=== PATIENT | female | born 1995 | race Caucasian/White ===

== ENCOUNTER 2020-09-15 14:49 | Emergency (ER) | payer MEDICAID ==
[~2020-09-15] VITALS: Ht 162.6 cm; Wt 64.5 kg
[2020-09-15 14:58] VITALS: TEMP 97.4
[2020-09-15 15:29] LABS: COLLECTION METHOD CLEAN CATCH
[2020-09-15 15:31] LABS: BASO % 0.3 % (0.0-2.0); EOS % 0.5 % (0-4.0); GRAN # 5.6 (1.4-6.5); GRAN % 76.4 % (42.2-75.2); HEMOGLOBIN 11.1 g/dl (12.5-16.0); LYMPH # 1.2 (1.2-3.4); LYMPH % 16.9 % (20.0-51.0); MEAN CELL VOLUME 90 fl (80.0-100.0); MEAN CORPUSCULAR HEMOGLOBIN 29 pg (27.0-31.0); MEAN CORPUSCULAR HGB CONC 33 g/dl (33.0-37.0); MEAN PLATELET VOLUME 9.2 fl (7.4-10.4); MONO # 0.4 (0.1-0.6); MONO % 5.4 % (1.7-9.3); PLATELET COUNT 231 K/mm3 (130-400); RED BLOOD COUNT 3.81 M/mm3 (4.10-5.30); REDCELL DISTRIBUTION WIDTH-CV 13.4 % (11.5-14.5)
[2020-09-15 15:33] LABS: HEMATOCRIT 34.2 % (37.0-47.0)
[2020-09-15 15:35] LABS: MUCOUS Present /lpf; PH 8 (5-8); URINE APPEARANCE Hazy; URINE BACTERIA Rare /hpf; URINE BILIRUBIN Negative (NEGATIVE); URINE BLOOD Negative (NEGATIVE); URINE COLOR Yellow; URINE GLUCOSE Negative (NEGATIVE); URINE KETONE Negative (NEGATIVE); URINE LEUKOCYTE ESTERASE Trace (NEGATIVE); URINE NITRATE Negative (NEGATIVE); URINE PROTEIN(semi-quant) Negative (NEGATIVE); URINE RBC 0-2 /hpf; URINE UROBILINOGEN Negative (NEGATIVE)
[2020-09-15 15:47] LABS: ALANINE AMINOTRANSFERASE 13 U/L (4-34); ALBUMIN 3.9 gm/dL (3.5-5.0); ALKALINE PHOSPHATASE 52 U/L (50-136); ANION GAP 10 mmol/L (7-16); AST,SGOT 20 U/L (15-37); BILIRUBIN,TOTAL 0.2 mg/dL (0.0-1.0); BLOOD UREA NITROGEN 7 mg/dL (7-17); CALCIUM 9.6 mg/dL (8.4-10.2); CARBON DIOXIDE 21 mmol/L (22-30); CHLORIDE 105 mmol/L (98-107); CREATININE, serum 0.48 (0.52-1.25); GLUCOSE 85 mg/dL (74-106); POTASSIUM 3.7 mmol/L (3.4-5.0); SODIUM 136 mmol/L (137-145); TOTAL PROTEIN 7.1 gm/dL (6.4-8.2)
[2020-09-15 16:09] LABS: C-REACTIVE PROTEIN < 0.5 mg/dL (0.0-0.9); LIPASE 50 U/L (23-300)
[2020-09-15] MEDS ORDERED: CEFTIN500 MG PO (16:59)
[2020-09-15 17:15] VITALS: BP 108/72; PULSE 72
== END 2020-09-15 17:19 | disposition home or self-care (01) ==
LOC: COL.ER 14:49
PROVIDERS: Physician Assistant
DX: O23.42 Unspecified infection of urinary tract in pregnancy, second trimester (principal); Z3A.19 19 weeks gestation of pregnancy
CPT/HCPCS: J0696; J7030

== ENCOUNTER 2021-01-05 12:33 | Outpatient (CLI) | payer MEDICAID ==
[~2021-01-05] VITALS: Ht 162.6 cm; Wt 73.5 kg
--- NOTE | 2021-01-05 12:20 | NUR ---
Patient ambulates to LR1, changes into gown, FHR/TOCO monitors applied. Patient states "I have been cramping, having alot of pelvic pressure, back pain, everytime he moves his head I pee myself a little". Denies any leaking of fluid/vaginal bleeding/decreased movement. Plan of care discussed. SVE: 0-1/thick/-3 and amniotest negative.
--- NOTE | 2021-01-05 12:30 | NUR ---
Dr. Raya at nurses station and updated and order for a UA at this time and to call her with results and to have patient PO hydrate. Patient taken water and plan of care discussed.
[~2021-01-05 12:33] MED LIST: CEFTIN500 MG PO
[2021-01-05 12:42] LABS: COLLECTION METHOD CLEAN CATCH
[2021-01-05 12:45] VITALS: BP 106/68; PULSE 116; TEMP 99.2
[2021-01-05 12:50] LABS: MUCOUS Present /lpf; PH 7 (5-8); URINE APPEARANCE Hazy; URINE BACTERIA Rare /hpf; URINE BILIRUBIN Negative (NEGATIVE); URINE BLOOD Negative (NEGATIVE); URINE COLOR Yellow; URINE GLUCOSE Negative (NEGATIVE); URINE KETONE Negative (NEGATIVE); URINE LEUKOCYTE ESTERASE Negative (NEGATIVE); URINE NITRATE Negative (NEGATIVE); URINE PROTEIN(semi-quant) Negative (NEGATIVE); URINE RBC 0-2 /hpf; URINE UROBILINOGEN Negative (NEGATIVE); URINE WBC 0-2 /hpf
[2021-01-05 13:00] VITALS: BP 99/61; PULSE 100
[2021-01-05 13:25] VITALS: BP 93/57; PULSE 96
--- NOTE | 2021-01-05 13:25 | NUR ---
Patient given discharge instructions and verbalizes understanding. Patient off monitors. Questions answered. 1335: Patient off unit at this time.
== END 2021-01-05 13:35 | disposition home or self-care (01) ==
LOC: LDRO 12:33
PROVIDERS: Obstetrics & Gynecology
DX: O26.899 Other specified pregnancy related conditions, unspecified trimester (principal); Z3A.41 41 weeks gestation of pregnancy

== ENCOUNTER 2021-01-31 10:23 | Outpatient (CLI) | payer MEDICAID ==
[~2021-01-31] VITALS: Ht 162.6 cm; Wt 71.4 kg
[2021-01-31 10:34] VITALS: BP 113/71; PULSE 120; TEMP 99.2
--- NOTE | 2021-01-31 10:46 | NUR ---
PT. AMBULATORY TO UNIT FOR C/O INTERMITTENT LOWER BACK PAIN. PT. ESCORTED TO LR5 AND CLEAN GOWN ON. EFM/TOCO APPLIED. VITAL SIGNS OBTAINED, SVE PER FAUSTINO UNGER /3. ASSESSMENTS COMPLETED AND QUESTIONS INVITED. PT. STATES NO QUESTIONS/CONCERNS AT THIS TIME. WILL CONTINUE TO MONITOR PT
[2021-01-31 11:00] VITALS: BP 109/56; PULSE 116
[2021-01-31 11:03] VITALS: BP 108/62; PULSE 100
--- NOTE | 2021-01-31 11:18 | NUR ---
PT. CLAUDIA EVERY 1.5-2, BUT MILD UPON PALPATION. PT. STATES SHE IS HAVING BACK PAIN, BUT THAT'S THE ONLY THING SHE FEELS. RN GAVE CUP OF WATER AND ENCOURAGED FLUID INTAKE. EXPLAINED DEHYDRATION W/ .
[2021-01-31 11:30] VITALS: BP 102/58; PULSE 102
--- NOTE | 2021-01-31 11:41 | NUR ---
1130: DR. RAMOS AT DISCUSSING POC. SHE WANTS PT TO WALK AROUND/USE BIRTHING BALL, ETC FOR THE NEXT 40MIN TO TRY TO SEE IF SHE'S IN LABOR SINCE PT. WANTS TO TOLAC. THEN MONITOR BABY FOR 20MIN AND RECHECK CERVIX. CALL HER WITH UPDATED SVE
[2021-01-31 12:32] VITALS: TEMP 98.7
--- NOTE | 2021-01-31 12:58 | NUR ---
1252: PT. DISCHARGED HOME PER DR. RAMOS. RN WENT OVER RETURN PRECAUTIONS AND DISCHARGE PAPERWORK. PT. STATES UNDERSTANDING OF PRECAUTIONS AND HAS NO QUESTIONS. PT. WILL BE HERE TOMORROW AT 9AM FOR WORKUP FOR 11AM SCHEDULED . PT. AMBULATORY OFF UNIT AND RN ACCOMPANIED HER TO FRONT DOOR OF UNIT. PT. STEADY GAIT AND STABLE UPON DISCHARGE.
[2021-02-01] MEDS ORDERED: NATURAL IRON65 MG (10:04)
== END 2021-01-31 12:52 | disposition home or self-care (01) ==
LOC: LDRO 10:23
DX: O26.893 Other specified pregnancy related conditions, third trimester (principal); M54.5 Low back pain; Z3A.38 38 weeks gestation of pregnancy

== ENCOUNTER 2021-01-31 13:03 | Inpatient (IN) | payer MEDICAID ==
[~2021-01-31] VITALS: Ht 162.7 cm; Wt 71.4 kg
[2021-02-01] VITALS (19 sets, daily range): BP systolic 84–120; BP diastolic 39–64; PULSE 63–137; TEMP 97.4–98.2
[2021-02-01] MEDS ORDERED: NATURAL IRON65 MG (10:04)
[2021-02-01 10:12] LABS: HEMATOCRIT 29.9 % (37.0-47.0); HEMOGLOBIN 9.7 g/dl (12.5-16.0); MEAN CELL VOLUME 87 fl (80.0-100.0); MEAN CORPUSCULAR HEMOGLOBIN 28 pg (27.0-31.0); MEAN CORPUSCULAR HGB CONC 32 g/dl (33.0-37.0); MEAN PLATELET VOLUME 9.4 fl (7.4-10.4); PLATELET COUNT 266 K/mm3 (130-400); RED BLOOD COUNT 3.45 M/mm3 (4.10-5.30); REDCELL DISTRIBUTION WIDTH-CV 14.6 % (11.5-14.5)
[2021-02-01 10:39] LABS: BAND 3 % (0-10); LYMPHOCYTE 14 % (20.0-51.0); NEUTROPHILS 70 % (42.0-75.2)
[2021-02-01 10:40] LABS: PLATELET ESTIMATE NORMAL (NORMAL)
[2021-02-02 03:00] VITALS: BP 99/49; PULSE 62; TEMP 97.9
[2021-02-02 07:55] VITALS: BP 98/58; PULSE 76; TEMP 98.1
[2021-02-02 16:15] VITALS: BP 101/56; PULSE 74; TEMP 97.6
[2021-02-02 20:30] VITALS: BP 99/49; PULSE 79; TEMP 98.5
[2021-02-03] MEDS ORDERED: IBU800 M1 PO (08:30)
[2021-02-03] MEDS ORDERED: ROXICODONE 55 MG/TAB PO (08:31)
[2021-02-03 09:00] VITALS: BP 97/55; PULSE 84; TEMP 98.4
== END 2021-02-03 11:45 | disposition home or self-care (01) | DRG 788 ==
LOC: OB 13:03
PROVIDERS: ADMIT Student in an Organized Health Care Education/Training Program
PROC: 10D00Z1 Extraction of Products of Conception, Low, Open Approach (ICD-10-PCS; principal; 2021-02-01)
DX: O34.211 Maternal care for low transverse scar from previous cesarean delivery (principal); O99.02 Anemia complicating childbirth; D64.9 Anemia, unspecified; O99.52 Diseases of the respiratory system complicating childbirth; J45.909 Unspecified asthma, uncomplicated; O69.2XX0 Labor and delivery complicated by other cord entanglement, with compression, not applicable or unspecified; O26.893 Other specified pregnancy related conditions, third trimester; Z37.0 Single live birth; Z3A.39 39 weeks gestation of pregnancy
CPT/HCPCS: J0690; J1100; J1885; J2370; J2405; J2590; J2791; J7120

== ENCOUNTER 2023-11-26 12:12 | Emergency (ER) | payer MEDICAID ==
[~2023-11-26] VITALS: Ht 162.6 cm; Wt 77.3 kg
[~2023-11-26 12:12] MED LIST changes: +CEPHALEXIN500 M1 PO; +IBU800 M1 PO; +NATURAL IRON65 MG; +ROXICODONE 55 MG/TAB PO; +TYLENOL 500MG500 MG PO
[2023-11-26 12:15] VITALS: TEMP 98.3
[2023-11-26 15:25] VITALS: BP 103/67; PULSE 76
== END 2023-11-26 15:25 | disposition home or self-care (01) ==
LOC: COL.ER 12:12
DX: M79.602 Pain in left arm (principal)